=== PATIENT | female | born 1945 | race Asian ===

== ENCOUNTER 2022-09-20 07:00 | Outpatient (CLI) | payer MEDICARE ==
--- NOTE | 2022-09-20 16:55 | XRAY Report ---
PROCEDURE: Lumbar Spine 2 View INDICATIONS: LOW BACK PAIN TECHNIQUE: 2 views of the lumbar spine were acquired. COMPARISON: None. FINDINGS: Bones: 5 [id number] vertebrae are present. There is straightening of normal lumbar lordosis. 5 mm anterolisthesis of L4 on L5 is seen. Age-indeterminate and anterior wedge compression deformity a t L2 level is seen with up to 30% loss of L2 vertebral body height anteriorly. Degenerative endplate changes and bilateral facet arthrosis throughout lumbar spine is noted.. No suspicious bony lesions. Soft tissues: Overlying bowel gas pattern is normal. No suspicious soft tissue calcifications. IMPRESSION: 1. Age-indeterminate anterior wedge compression deformity involving superior endplate of L2 vertebral body as above. No other compression fracture is seen. Grade 1 anterolisthesis of L4 on L5. 2. Degenerative disc disease throughout lumbar spine. Reviewed by: Medhat Winters MD on 09/20/2022 4:54 PM PST Approved by: Medhat Winters MD on 09/20/2022 4:54 PM PST Station ID: [id number]
== END 2022-09-20 23:59 | disposition home or self-care (01) ==
LOC: DI.S 07:00
PROVIDERS: ATTEND Registered Nurse
DX: M51.36 Other intervertebral disc degeneration, lumbar region (principal); M47.816 Spondylosis without myelopathy or radiculopathy, lumbar region; M43.16 Spondylolisthesis, lumbar region; M48.56XA Collapsed vertebra, not elsewhere classified, lumbar region, initial encounter for fracture

== ENCOUNTER 2022-11-11 14:48 | Outpatient (CLI) | payer MEDICARE | END 2022-11-11 14:49 | disposition EMS.NT | LOC: EMS 14:48 | DX: M54.50 Low back pain, unspecified (principal) ==

== ENCOUNTER 2023-01-09 13:25 | Outpatient (CLI) | payer MEDICARE ==
--- NOTE | 2023-01-09 16:29 | XRAY Report ---
PROCEDURE: Pelvis 3 View INDICATIONS: COLLAPSED VERTEBRA TECHNIQUE: 4 view(s) of the pelvis acquired. COMPARISON: None. FINDINGS: Bones: No fractures or dislocations. No suspicious bony lesions. Soft tissues: Visualized bowel gas pattern is normal. No suspicious soft tissue calcifications. IMPRESSION: No acute fracture. No osseous lesion. If symptoms and/or clinical suspicion for pathology continue, f urther assessment with repeat plain films, or advanced imaging (e.g., CT, MRI, or bone scan) is recom mended for further assessment. Reviewed by: Anel Haynes MD on 01/09/2023 4:27 PM PDT Approved by: Anel Haynes MD on 01/09/2023 4:27 PM PDT Station ID: [id number]
--- NOTE | 2023-01-09 16:29 | XRAY Report ---
PROCEDURE: Thoracic Spine 3 View INDICATIONS: COLLAPSED VERTEBRA TECHNIQUE: 3 views of the thoracic spine were acquired. COMPARISON: None. FINDINGS: Bones: There is mild wedging at T7, T8, and T10. Moderate wedging at T12. No suspicious bony lesions. Visualized ribs are intact. Multilevel disc space narrowing and endplate osteophyte formation. Soft tissues: No paravertebral stripe thickening. IMPRESSION: Multilevel thoracic compression fractures of uncertain acuity. MRI is recommended for further assessm ent. Reviewed by: Anel Haynes MD on 01/09/2023 4:28 PM PDT Approved by: Anel Haynes MD on 01/09/2023 4:28 PM PDT Station ID: [id number]
[2023-01-09 19:59] LABS: BASOPHILS % (AUTO) 0.4 %; EOSINOPHILS # (AUTO) 0.1 10^3/uL (0.0-0.7); EOSINOPHILS % (AUTO) 1.5 %; HGB - HEMOGLOBIN 11.3 g/dL (12.0-16.0); LYMPHOCYTES # (AUTO) 0.8 10^3/uL (1.5-3.5); LYMPHOCYTES % (AUTO) 17.3 %; MEAN CORPUSCULAR HEMOGLOBIN 26.7 pg (27.0-31.0); MEAN CORPUSCULAR HGB CONC 30.5 g/dL (32.0-36.0); MEAN CORPUSCULAR VOLUME 87.5 fL (81.0-99.0); MEAN PLATELET VOLUME 9.2 fL (7.9-10.8); MONOCYTES # (AUTO) 0.3 10^3/uL (0.0-1.0); MONOCYTES % (AUTO) 6.3 %; NEUTROPHILS # (AUTO) 3.5 10^3/uL (1.5-6.6); NEUTROPHILS % (AUTO) 74.1 %; PLT - PLATELET COUNT 241 10^3/uL (130-450); RED BLOOD COUNT 4.23 10^6/uL (4.20-5.40); RED CELL DISTRIBUTION WIDTH 15.7 % (12.0-15.0); WHITE BLOOD COUNT 4.8 x10^3/uL (4.8-10.8)
[2023-01-09 20:16] LABS: ALBUMIN 3.8 g/dL (3.2-5.5); ALBUMIN/GLOBULIN RATIO 1.2 (1.0-2.2); ALKALINE PHOSPHATASE 79 IU/L (42-121); ALT ALANINE AMINOTRANSFERASE < 10 IU/L (10-60); AST ASPARTATE AMINOTRANSFERASE 15 IU/L (10-42); BILIRUBIN,TOTAL 0.6 mg/dL (0.2-1.0); BUN - BLOOD UREA NITROGEN 23 mg/dL (6-20); CALCIUM 9.1 mg/dL (8.5-10.3); CARBON DIOXIDE - CO2 30 mmol/L (21-32); CHLORIDE 104 mmol/L (101-111); CREATININE 0.6 mg/dL (0.4-1.0); GFR - MDRD 97 (>89); GLUCOSE 153 mg/dL (70-100); POTASSIUM 3.6 mmol/L (3.5-5.0); SODIUM 141 mmol/L (135-145); TOTAL PROTEIN 7.1 g/dL (6.7-8.2)
[2023-01-09 20:26] LABS: CA 125 21.5 U/mL (0.0-35.0)
[2023-01-09 20:30] LABS: THYROID STIMULATING HORMONE 0.55 uIU/mL (0.34-5.60)
[2023-01-09 21:06] LABS: CRP - C-REACTIVE PROTEIN < 1.0 mg/dL (0-1.0)
[2023-01-11 01:08] LABS: VITAMIN D 25-HYDROXY 25.5 ng/mL (30.0-100.0)
[2023-01-11 15:08] LABS: CALCIUM IONIZED SERUM 4.9 mg/dL (4.5-5.6)
== END 2023-01-09 13:26 | disposition home or self-care (01) ==
LOC: DI.S 13:25
PROVIDERS: ATTEND Internal Medicine
DX: I10 Essential (primary) hypertension (principal); M48.56XA Collapsed vertebra, not elsewhere classified, lumbar region, initial encounter for fracture; M54.50 Low back pain, unspecified; M48.54XA Collapsed vertebra, not elsewhere classified, thoracic region, initial encounter for fracture
CPT/HCPCS: 36415; 80053; 82306; 82330; 83970; 84443; 85025; 85651; 86140; 86304

== ENCOUNTER 2023-04-03 14:22 | Outpatient (CLI) | payer MEDICARE ==
--- NOTE | 2023-04-03 15:05 | DEXA Report ---
PROCEDURE: Dexa Spine and/or Hip INDICATIONS: HYPOPARATHYROIDISM TECHNIQUE: Dual energy x-ray absorptiometry (DXA) was performed on a [employer] System. Regions measur ed are the AP Spine, femoral neck, and if needed forearm. COMPARISON: None. FINDINGS: Lumbar Spine: Bone Mineral Density 1.029 g/cm/cm,T score -1.3. Left Femoral Neck: Bone Mineral Density 0.613 g/cm/cm, T score -3.1. Left Hip: Bone Mineral Density 0.747 g/cm/cm,T score -2.1. (T score greater or equal to -1.0: NORMAL) (T score from -1.1 to -2.4: OSTEOPENIA) (T score less than or equal to -2.5 to: OSTEOPOROSIS) Impression: By WHO criteria, this patient has osteoporosis. Patients with diagnosis of osteoporosis or osteopenia should have regular bone mineral density assess ment. For those eligible for Medicare, routine testing is allowed once every 2 years. Testing frequ ency can be increased for patients who have rapidly progressing disease or for those who are receivin g medical therapy to restore bone mass. Reviewed by: Danny Mistry MD on 04/03/2023 3:04 PM PDT Approved by: Danny Mistry MD on 04/03/2023 3:04 PM PDT Station ID: [id number]
== END 2023-04-03 14:23 | disposition home or self-care (01) ==
LOC: DI 14:22
PROVIDERS: ATTEND Internal Medicine
DX: M81.0 Age-related osteoporosis without current pathological fracture (principal); R79.89 Other specified abnormal findings of blood chemistry; E20.9 Hypoparathyroidism, unspecified; E55.9 Vitamin D deficiency, unspecified; S22.060A Wedge compression fracture of T7-T8 vertebra, initial encounter for closed fracture; Z85.43 Personal history of malignant neoplasm of ovary